=== PATIENT | male | born 1960 | race Caucasian/White ===

== ENCOUNTER → 2018-01-30 | Day surgery (SDC) | payer OTHER ==
[~2018-01-30] VITALS: Ht 175.3 cm; Wt 133.8 kg
--- NOTE | 2018-01-30 12:25 | Operative Report ---
See Addendum Operative/Inv Procedure Report Surgery Date: 01/30/18 Name of Procedure: Left shoulder arthroscopy, subacromial decompression, extensive debridement, arthroscopic rotator cuff repair, subpectoral biceps tenodesis Pre-Operative Diagnosis: Left shoulder rotator cuff tear Post-Operative Diagnosis: Left shoulder rotator cuff tear Estimated Blood Loss: scant Surgeon/Wealth Management Consultant: Barber LUGO,SHERIDAN Rolon Anesthesia: general endotracheal tube, block Complications: None Condition: Stable to PACU Operative Indication: This is a 57-year-old male who injured his left shoulder after a fall on 2016. MRI showed a large retracted tear of the supraspinatus as well as a SLAP tear. Risks and benefits of the procedure were discussed with the patient at length. Risks include but are not limited to nerve damage, muscle damage, infection, blood loss, blood clots, pulmonary embolus, and even . The patient agreed to the above risks and elected to proceed with surgery. Operative/Procedure Note Note: The patient was taken to the operating room and placed in the lateral decubitus position with the operative side up after anesthesia was induced. The upper extremity was prepped and draped in the normal sterile fashion. A timeout was performed prior to incision. The site marking was visualized prior to incision. IV antibiotics were given prior to incision. After the upper extremity was prepped and draped a spinal needle was used to insufflate the shoulder joint with saline. An 11 blade was used to incise the skin for the posterior portal placement. The cannula was then placed. The camera was inserted. An anterior portal was established just proximal and lateral to the coracoid with a spinal needle and an 11 blade. The diagnostic arthroscopy was then performed which showed the above findings. A wand was used to release the biceps tendon at its base. The shaver was used to debride the superior and posterior labrum. The shaver was also used to debride the leading edge of the subscapularis insertion. Next the subacromial space was entered through the posterior portal. A lateral portal was established with a spinal needle and an 11 blade. A blunt probe was inserted through the lateral portal. Next the shaver was inserted and a subacromial bursectomy was performed. Any bleeding vessels were identified and cauterized. The shaver was used to debride any bursal tissue on the undersurface of the acromion and surrounding the humeral head. The coracoacromial ligament was taken down with a wand. Care was taken to protect the rotator cuff tissue and only take bursal tissue. A wand was then used to further take down the soft tissue on the undersurface of the acromion. A bur was then inserted and the acromioplasty was then begun starting at the anterolateral edge of the acromion. This was extended down to the level of the acromioclavicular joint. This was then tapered further posteriorly. An 8 mm PassPort cannula was placed through the lateral portal site. A 6 mm PassPort cannula was placed through the anterior portal. An accessory portal was made just off of the lateral border the acromion with a spinal needle and an 11 blade. An 8 mm PassPort cannula was placed through this. The bur was used to prepare the rotator cuff footprint back to a healthy bed of bleeding bone for later rotator cuff repair. Any bursal adhesions superior to the rotator cuff were taken collin with a shaver. The anterior interval release in situ was performed by releasing the coracohumeral ligament. A #2 suture was then placed in an inverted mattress fashion at the leading edge of the rotator cuff. This was used as a traction stitch. A tap was used and two 5.5 mm helicoil anchors were placed just lateral to the articular surface in the rotator cuff footprint. An expressew needle was then used to shuttle the sutures from front to back. The medial row was tied down with a locking knot and several half hitches. A footprint anchor was then used to reduce the rotator cuff tear to the footprint via the traction stitch. The sutures were then crisscrossed over the top and fixed with 2 lateral row multifix anchors. An anchor was placed posterior to the bicipital groove. A second anchor was placed further posterior. This afforded excellent compression of the rotator cuff. The excess suture was then cut. A 1/8 inch Hemovac drain was placed through the posterior portal. All instruments were removed and the shoulder was copiously irrigated. The portal sites were closed with 3-0 nylon suture in a simple interrupted fashion. An incision was then made in the axillary fold. Blunt dissection was performed and the pectoralis major tendon was identified. A Hohmann retractor was inserted deep to this to expose the bicipital groove. The biceps tendon was then delivered from the wound and whipstitched starting at the musculotendinous junction. It extended proximally. The excess tendon was cut. The bicipital groove was then cleared off of any soft tissue. A guidewire was then drilled from an anterior to posterior direction in the groove. A 7 mm reamer was then used over the wire to drill the anterior cortex. A 7 x 10 mm Arthrex peek tenodesis screw was then inserted after the biceps tendon was delivered into the drill hole. The screw was then tightened down flush with the anterior humeral cortex. The sutures were then tied over the top. The excess suture was cut. The wound was copiously irrigated. The skin was closed with 2-0 vicryl suture in a simple interrupted fashion and a running subcuticular 4-0 Monocryl stitch. Dermabond was applied. A dry sterile dressing was placed. A sling was applied. The patient was transferred to PACU in stable condition. Findings: Degenerative tearing of the posterior labrum. Displaced SLAP tear noted. Anterior labrum intact. Intrasubstance tearing of the biceps tendon noted. Upper border of the subscapularis intrasubstance tearing. Large retracted tear of the supraspinatus. Partial undersurface tearing of the infraspinatus. No loose bodies noted. Glenohumeral articular cartilage intact. Subacromial hook present. Extensive subacromial bursitis present.
== END ==
LOC: STS 01-11 07:00
DX: S46.012A Strain of muscle(s) and tendon(s) of the rotator cuff of left shoulder, initial encounter (principal); S46.112A Strain of muscle, fascia and tendon of long head of biceps, left arm, initial encounter; W19.XXXA Unspecified fall, initial encounter; M75.52 Bursitis of left shoulder; E66.01 Morbid (severe) obesity due to excess calories; Z68.42 Body mass index [BMI] 45.0-49.9, adult; I10 Essential (primary) hypertension; F17.200 Nicotine dependence, unspecified, uncomplicated
CPT/HCPCS: C9290; C9399; J0131; J0171; J0690; J2250